=== PATIENT | female | born 1975 | race Caucasian/White ===

== ENCOUNTER 2017-01-25 17:44 | Observation (INO) | payer BC ==
[~2017-01-25] VITALS: Ht 165.1 cm; Wt 102.0 kg
[~2017-01-25 17:44] MED LIST: ADVIL200 MG PO; VICODIN 5/500 T1 TAB PO
--- NOTE | 2017-01-25 18:01 | NUR ---
RECEIVED PT VIA WHEELCHAIR FROM HOSPTIAL STAFF. PT IS ALERT AND ORIENTED. PT STATES SHE IS A DIRECT ADMIT PER DR. MCGRATH. ON ROOM AIR. NO IV ACCESS CURRENTLY. UP AD KATEY. WILL ADMIT PT AND AWAIT NEW ORDERS. WILL CONTINUE TO MONITOR.
[2017-01-25] MEDS ORDERED: EFFEXOR100 MG PO (18:04)
[2017-01-25] MEDS ORDERED: PROAIR HFA8.5 GM INH (18:04)
[2017-01-25] MEDS ORDERED: XANAX0.5 MG PO (18:05)
[2017-01-25] MEDS ORDERED: HYDROCODONE-APA1 TAB PO (18:06)
[2017-01-25] MEDS ORDERED: ZEGERID 20 MG C1 CAP PO (18:07)
[2017-01-25 18:09] VITALS: BP 124/83; BMI 36.6
--- NOTE | 2017-01-25 18:49 | NUR ---
TRIED TO SITE PT WITH IV CATHETER. ATTEMPTED X 3 STICKS THAT WERE NOT SUCCESSFUL. WILL PASS THIS ALONG IN REPORT TO TOP COLLAR MAKER NURSE.
--- NOTE | 2017-01-25 18:55 | NUR ---
PT PLACED ON 02 AT 2L VIA NC ORDERED.
--- NOTE | 2017-01-25 18:55 | NUR ---
PT SHOWED ME A SMALL BLISTER TYPE SORE TO RIGHT BREAST AREA, PUS SEEN ON BLISTER. WILL PASS THIS ALONG IN REPORT.
[2017-01-25 19:45] LABS: HEMATOCRIT 37.5 % (36.0-48.0); MCH 29.6 pg (26.0-34.0); MCV 92.6 fL (80.0-100.0); MEAN PLATELET VOLUME 9.7 fL (7.4-10.4); RBC 4.05 10x6/uL (4.00-5.40); RDW 13.7 % (11.5-14.5); WBC 5.9 10x3/uL (4.8-10.8)
[2017-01-25 19:46] LABS: PLATELET COUNT 166 10x3/uL (130-400)
[2017-01-25 20:03] LABS: CALC OSMOLALITY 273 mosm/kg (275-300); CALCIUM 8.4 mg/dL (8.5-10.1); CARBON DIOXIDE 26.6 mmol/L (21.0-32.0); CHLORIDE - SERUM 101 mmol/L (98-107); CREATININE - SERUM 0.8 mg/dL (0.6-1.3); POTASSIUM - SERUM 3.3 mmol/L (3.5-5.1); SODIUM 138 mmol/L (136-145); UREA NITROGEN 7 mg/dL (7-18); eGFR NON AFRICAN AMERICAN 83 mL/min (90-120)
[2017-01-25 20:06] LABS: GLUCOSE 97 mg/dL (74-106)
[2017-01-25 20:52] VITALS: BP 125/69
[2017-01-25 21:07] LABS: EOSINOPHILS 22 % (0-7); LYMPHOCYTES 22 % (15-50); MONOCYTES 3 % (2-11); NEUTROPHILS 53 % (40-80); PLATELET ESTIMATE NORMAL
[2017-01-26 01:33] VITALS: BP 141/71
[2017-01-26 06:04] VITALS: BP 130/74
--- NOTE | 2017-01-26 06:34 | NUR ---
PT FEELING BETTER, DENIES ANY ACUTE NEEDS. CONTINUE TO MONITOR CLOSELY.
[2017-01-26 07:47] VITALS: BP 119/55
[2017-01-26 11:31] VITALS: BP 132/79
[2017-01-26 13:09] VITALS: Ht 165.1 cm; Wt 102.0 kg
[2017-01-26 15:35] VITALS: BP 138/86
[2017-01-26 20:00] VITALS: BP 137/90
--- NOTE | 2017-01-26 20:02 | NUR ---
RESTING IN BED WITH EYES CLOSED. RESPS EVEN/NONLABORED WITH O2 @ 2L/NC. SALINE LOCK TO LEFT HAND. ON LOVENOX FOR DVT PROTOCOL. SEE SHIFT ASSESSMENT. CPOC.
[2017-01-27 04:00] VITALS: BP 127/66
--- NOTE | 2017-01-27 07:40 | NUR ---
PT SITTING UP IN BED DENIES NEEDS GIRLFRIEND AT BEDSIDE WILL CONT TO MONITOR
[2017-01-27] MEDS ORDERED: IPRAT-ALBUT 0.5-3 ML UPD (07:54)
[2017-01-27] MEDS ORDERED: MEDROL DOSE PACK4 MG PO (07:55)
[2017-01-27 08:56] VITALS: BP 140/91
--- NOTE | 2017-01-27 10:21 | NUR ---
Patient Name: JENNIFER SHERIDAN Admission Status: Elective Accout number: [id number] Admission Date: 01-25-2017 : 1975 Admission Diagnosis: Attending: TREY Current LOS: 2 Anticipated DC Date: 01-27-2017 Planned Disposition: Home Primary Insurance: [email or web address] Discharge Planning Comments: * Is the patient Alert and Oriented? Yes 0 * How many steps to enter\exit or inside your home? NONE 0 * PCP DR. MCGRATH 0 * Pharmacy [facility] [address] WOULD LIKE TO USE [facility] [address] [facility] * Preadmission Environment Home with Family 0 * ADLs Independent 0 * Equipment None 0 * Other Equipment NO MEDICAL EQUIPMENT PROVIDER PREFERENCE 0 * List name and contact numbers for known caregivers / representatives who currently or will assist patient after discharge: STACEY JOSEPH, MOTHER, 0 * Community resources currently utilized None 0 * Please name any agencies selected above. NONE 0 * Additional services required to return to the preadmission environment? No 0 * Can the patient safely return to the preadmission environment? Yes 0 * Has this patient been hospitalized within the prior 30 days at any hospital? No 0 CM MET WITH PT IN ROOM TO DISCUSS DISCHARGE PLANNING AND NEEDS. PT REPORTS LIVING AT HOME INDEPENDENTLY WITH HER ADULT FRIEND. PT HAS NO MEDICAL EQUIPMENT AND NO OUTSIDE SERVICES ASSISTING IN THE HOME. PT HAS NO PREFERENCE ON MEDICAL EQUIPMENT PROVIDER. CM DISCUSSED AVAILABILITY OF HOME HEALTH, REHAB SERVICES AND MEDICAL EQUIPMENT. PT DENIES DISCHARGE NEEDS EXCEPT FOR THE NEBULIZER ORDERED BY THE DOCTOR. PT REPORTS HER FRIEND WILL PICK HER UP FOR DISCHARGE HOME. CM CALLED [facility], , SPOKE TO [facility] AND PROVIDED REFERRAL FOR NEBULIZER. CM FAXED REFERRAL TO [facility] AT [phone] FOR HOSPITAL DELIVERY TODAY. PT NOTIFIED. NO FURHTER DISCHARGE NEEDS IDENTIFIED. RAN TO DELIVERY NEBULIZER TO PT'S HOSPITAL ROOM FOR DISCHARGE HOME THIS MORNING. Head Of Insight: Nikolay Whiteside
--- NOTE | 2017-01-27 12:29 | NUR ---
WENT OVER DC PAPERWORK WITH PT PT VERBALIZES UNDERSTANDING. DC PIV WITH CATHETER TIP INTACT. PT GETTING DRESSED AND WILL CALL WHEN READY TO GO DOWNSTAIRS.
== END 2017-01-27 13:52 | disposition home or self-care (01) ==
LOC: OBSVTIME 17:44 → D.M2 17:44
PROVIDERS: ADMIT Family Medicine
DX: J98.01 Acute bronchospasm (principal)